=== PATIENT | male | born 1965 | race Caucasian/White ===

== ENCOUNTER 2017-04-12 10:28 | Emergency (ER) | payer OTHER ==
[2017-04-12 10:28] VITALS: BMI 35.4
[2017-04-12 10:40] VITALS: PULSE 69; RESP 16; TEMP 98.2; O2SAT 100
[2017-04-12 11:25] VITALS: BP 120/72
--- NOTE | 2017-04-12 15:25 | C.PDOC ---
History Of Present Illness 52 yr old male presents to the ER for evaluation of redness to the left eye. Patient reports had same similar symptoms in the past. Patient denies trauma, fever, vision changes, headache or dizziness. Time Seen by Provider: 04/12/17 10:46 Chief Complaint (Nursing): Eye Problem History Per: Patient History/Exam Limitations: no limitations Onset/Duration Of Symptoms: Days Wears Contact Lens?: No Past Medical History Reviewed: Historical Data, Nursing Documentation, Vital Signs Vital Signs: Last Vital Signs Temp 98.2 F 04/12/17 10:37 Pulse 69 04/12/17 10:37 Resp 16 04/12/17 10:37 BP 120/72 04/12/17 11:08 Pulse Ox 100 04/12/17 15:25 - Medical History PMH: Hypercholesterolemia, Kidney Stones Denies: Colonic Polyps Surgical History: Endoscopy Family History: States: No Known Family Hx - Social History Hx Tobacco Use: No Hx Alcohol Use: Yes Hx Substance Use: No - Immunization History Hx Tetanus Toxoid Vaccination: No (UNK) Hx Influenza Vaccination: No (UNK) Hx Pneumococcal Vaccination: No (UNK) Review Of Systems Except As Marked, All Systems Reviewed And Found Negative. Constitutional: Negative for: Fever Eyes: Positive for: Redness (Left eye). Negative for: Vision Change Neurological: Negative for: Headache, Dizziness Physical Exam - Physical Exam Appears: Non-toxic, No Acute Distress Skin: Warm, Dry Head: Atraumatic, Normacephalic Eye(s): bilateral: PERRL, EOMI, right: Normal Inspection, left: Other ( Subconjunctival hemorrhage) Oral Mucosa: Moist Chest: Symmetrical, No Tenderness Cardiovascular: Rhythm Regular, No Murmur Respiratory: Normal Breath Sounds, No Rales, No Rhonchi, No Stridor, No Wheezing Neurological/Psych: Oriented x3, Normal Speech, Normal Motor ED Course And Treatment O2 Sat by Pulse Oximetry: 100 (RA) Pulse Ox Interpretation: Normal Disposition - Disposition Disposition: HOME/ ROUTINE Disposition Time: 10:55 Condition: GOOD Additional Instructions: Thank you for letting us take care of you today. Your provider was Dr. Perez. You were treated for subconjuntival hemorrhage of the eye. The emergency medical care you received today was directed at your acute symptoms. If you were prescribed any medication, please fill it and take as directed. It may take several days for your symptoms to resolve. Return to the Emergency Department if your symptoms worsen, do not improve, or if you have any other problems. Please contact your doctor or call one of the physicians/clinics you have been referred to that are listed on the Patient Visit Information form that is included in your discharge packet. Bring any paperwork you were given at discharge with you along with any medications you are taking to your follow up visit. Our treatment cannot replace ongoing medical care by a primary care provider (PCP) outside of the emergency department. Thank you for allowing the [facility] team to be part of your care today. Follow up with your eye doctor tomorrow for re-evaluation and further management. Return to the emergency room if there is a change in your vision. Instructions: Subconjunctival Hemorrhage (ED) Forms: [facility] (Amharic) - Clinical Impression Clinical Impression: Subconjunctival hemorrhage of left eye - Scribe Statement The provider has reviewed the documentation as recorded by the Kumar Keller Provider Attestation: All medical record entries made by the Kumar were at my direction and personally dictated by me. I have reviewed the chart and agree that the record accurately reflects my personal performance of the history, physical exam, medical decision making, and the department course for this patient. I have also personally directed, reviewed, and agree with the discharge instructions and disposition.
== END 2017-04-12 11:10 | disposition home or self-care (01) ==
LOC: C.ER 10:28
DX: H11.32 Conjunctival hemorrhage, left eye (principal)